=== PATIENT | female | born 1960 ===

== ENCOUNTER 2018-03-20 07:00 | Inpatient (IN) | payer OTHER ==
[~2018-03-20] VITALS: Ht 170.2 cm; Wt 112.9 kg
[~2018-03-20 07:00] MED LIST: ATENOLOL25 MG PO; CIPRO750 MG PO; HYDROCHLOROTHIA25 MG PO; NEURONTIN800 MG PO; PERCOCET 5/3251 TAB PO; VASOTEC20 MG PO; XARELTO10 MG PO
[2018-03-20] MEDS ORDERED: CYMBALTA60 MG PO (08:59)
[2018-03-20] MEDS ORDERED: ZOCOR40 MG PO (08:59)
[2018-03-20] MEDS ORDERED: ATIVAN0.5 M1 PO (09:00)
[2018-03-20] MEDS ORDERED: VASOTEC10 MG PO (09:00)
[2018-03-26] MEDS ORDERED: ENALAPRIL MALEA20 MG PO (11:09)
[2018-03-26] MEDS ORDERED: HYDROCHLOROTHIA25 MG PO (11:10)
[2018-03-26] MEDS ORDERED: CYMBALTA60 MG PO (11:10)
[2018-03-26] MEDS ORDERED: NEURONTIN800 MG PO (11:10)
[2018-03-26] MEDS ORDERED: ATENOLOL25 MG PO (11:10)
[2018-03-28] MEDS ORDERED: CIPRO500 MG PO (08:24)
[2018-03-28] MEDS ORDERED: PERCOCET 5-3251 EACH PO (08:24)
[2018-03-28] MEDS ORDERED: ELIQUIS5 MG PO (08:24)
== END 2018-03-29 16:01 | disposition home or self-care (01) | DRG 470 ==
LOC: SURH 03-25 07:00 → O/R 03-25 08:07 → SURG 03-25 08:07 → SURH 03-25 09:45 → SURG 03-25 16:19
PROC: 0SRD0JZ Replacement of Left Knee Joint with Synthetic Substitute, Open Approach (ICD-10-PCS; principal; 2018-03-27)
PROC: 0MNP0ZZ Release Left Knee Bursa and Ligament, Open Approach (ICD-10-PCS; 2018-03-27)
DX: M17.12 Unilateral primary osteoarthritis, left knee (principal); D62 Acute posthemorrhagic anemia; M81.0 Age-related osteoporosis without current pathological fracture; I10 Essential (primary) hypertension; E66.9 Obesity, unspecified; G51.0 Bell's palsy; R73.01 Impaired fasting glucose